=== PATIENT | female | born 1960 ===

== ENCOUNTER 2017-06-11 00:15 | Inpatient (IN) | payer MEDICAID, OTHER ==
--- NOTE | 2017-06-11 01:16 | ED PDOC ---
Arrival/HPI - General Historian: Patient, Spouse, Family (son) - History of Present Illness Time/Duration: Other Context: Home <Dev Huerta - Last Filed: 06/11/17 01:57> <Stan Wakefield - Last Filed: 06/11/17 04:35> - General Chief Complaint: Eye Problem Time Seen by Provider: 06/11/17 01:14 - History of Present Illness Narrative History of Present Illness (Text): 06/11/17 01:16 This 56 yo female with pmh seizures, presents to this ED c/o left eye injury x 2 hours. Patient stated she passed out, and developed chest pain afterwards. Patient is taking Carbamazepine for seizures. stated he saw patient on standing position with a seizure like movement. attempt to wake up patient with alcohol, but he accidentally spilled alcohol on patient left eye. Patient denies flynn, fever, sob, dizziness, dysarthria, dysphagia, or orthopnea. (Dev Huerta) Past Medical History - Provider Review Nursing Documentation Reviewed: Yes - Psychiatric Hx Substance Use: No <Dev Huerta - Last Filed: 06/11/17 01:57> Family/Social History - Physician Review Nursing Documentation Reviewed: Yes Family/Social History: Other (noncontributory) Smoking Status: no Hx Alcohol Use: No Hx Substance Use: No <Dev Huerta - Last Filed: 06/11/17 01:57> Allergies/Home Meds <Dev Huerta - Last Filed: 06/11/17 01:57> <Stan Wakefield - Last Filed: 06/11/17 04:35> Allergies/Adverse Reactions: Allergies No Known Allergies Allergy (Verified 06/11/17 00:37) Home Medications: Home Meds Medication Instructions Recorded Confirmed No Known Home Med 06/11/17 06/11/17 Review of Systems - Review of Systems Constitutional: Normal. absent: Fatigue, Weight Change, Fevers Eyes: Other (left eye injury) ENT: Normal. absent: Sore Throat Respiratory: Normal. absent: SOB, Cough Cardiovascular: Chest Pain, Syncope. absent: Palpitations, Edema, Calf Pain, FLYNN, Orthopnea Gastrointestinal: Normal. absent: Abdominal Pain, Nausea, Vomiting Genitourinary Female: Normal. absent: Dysuria, Frequency, Hematuria Musculoskeletal: Normal. absent: Back Pain, Neck Pain Skin: Normal. absent: Rash Neurological: Normal. absent: Headache, Dizziness, Focal Weakness, Gait Changes , Speech Changes, Facial Droop, Disequilibrium Endocrine: Normal Hemo/Lymphatic: Normal Psychiatric: Normal <BradleyTiffaniegemma Sharp - Last Filed: 06/11/17 01:57> Physical Exam Temperature: Afebrile Blood Pressure: Normal Pulse: Regular Respiratory Rate: Normal Appearance: Positive for: Well-Appearing, Non-Toxic, Comfortable Pain Distress: None Mental Status: Positive for: Alert and Oriented X 3 - Systems Exam Head: Present: Atraumatic, Normocephalic Pupils: Present: PERRL, Other ((+) fluorescine stain on left eye, nasal side of cornea at 9 O'clock, approx 4 mm, square shape abrasion) Extroacular Muscles: Present: EOMI Conjunctiva: Present: Normal Mouth: Present: Moist Mucous Membranes Pharnyx: Present: Normal. No: ERYTHEMA, EXUDATE, TONSILS ENLARGED Neck: Present: Normal Range of Motion. No: Meningeal Signs Respiratory/Chest: Present: Clear to Auscultation, Good Air Exchange. No: Respiratory Distress, Accessory Muscle Use Cardiovascular: Present: Regular Rate and Rhythm, Normal S1, S2. No: Murmurs Abdomen: Present: Normal Bowel Sounds. No: Tenderness, Distention, Peritoneal Signs Back: Present: Normal Inspection Upper Extremity: Present: Normal Inspection, Normal ROM. No: Cyanosis, Edema Lower Extremity: Present: Normal Inspection, Normal ROM. No: Edema Neurological: Present: GCS=15, CN II-XII Intact, Speech Normal, Motor Func Grossly Intact, Normal Sensory Function, Normal Cerebellar Funct, Gait Normal Skin: Present: Warm, Dry, Normal Color. No: Rashes Psychiatric: Present: Alert, Oriented x 3, Normal Insight, Normal Concentration <BradleyDev Aron - Last Filed: 06/11/17 01:57> Vital Signs Temp Pulse Resp BP Pulse Ox 06/11/17 04:26 97.9 F 68 13 158/76 H 99 06/11/17 00:32 98.6 F 78 18 150/75 97 Medical Decision Making <Dev Huerta - Last Filed: 06/11/17 01:57> <Stan Wakefield - Last Filed: 06/11/17 04:35> ED Course and Treatment: 06/11/17 02:02 is aware of this case. I recommended patient for observation due to chest pain and syncope. Pending labs, ct head, cxr (Dev Huerta Aron) 06/11/17 03:05 EKG shows NSR at 60 BPM with nonspecific t wave changes. Interpreted by me. EXAM:CT Head Without Intravenous Contrast Dictated and Authenticated by: Tyler Alex MD 06/11/2017 3:48 AM IMPRESSION: 1. No definite acute intracranial abnormality. 2. Incidental/non-acute findings are described above 06/11/17 04:09 Case discussed with Air Saw Operator and House Doctor Dr. Manuel who is aware and agrees with the plan. Accepts patient into hospitalist service. Patient will be admitted to Telemetry for NSTEMI and Syncope. (Stan Wakefield) - Lab Interpretations Lab Results: 06/11/17 01:45 06/11/17 01:45 Lab Results 06/11/17 03:00: Urine Color Yellow, Urine Appearance Clear, Urine pH 7.0, Ur Specific [place] 1.010, Urine Protein Negative, Urine Glucose (UA) Negative, Urine Ketones Negative, Urine Blood Negative, Urine Nitrate Negative, Urine Bilirubin Negative, Urine Urobilinogen 0.2, Ur Leukocyte Esterase Negative 06/11/17 01:45: Sodium 141, Potassium 3.9, Chloride 107, Carbon Dioxide 22, Anion Gap 17, BUN 10, Creatinine 0.6 L, Est GFR ( Amer) > 60, Est GFR ( Non-Af Amer) > 60, Random Glucose 115 H, Calcium 9.6, Magnesium 2.3 H, Total Bilirubin 0.3, AST 35, ALT 38, Alkaline Phosphatase 94, Lactate Dehydrogenase 501, Total Creatine Kinase 178, Troponin I 0.61 H*, NT-Pro-B Natriuret Pep 97.2 , Total Protein 7.9, Albumin 4.2, Globulin 3.6, Albumin/Globulin Ratio 1.2 06/11/17 01:45: WBC 11.3 H, RBC 4.27, Hgb 12.6, Hct 37.8, MCV 88.5, MCH 29.5, MCHC 33.3, RDW 14.1, Plt Count 272, MPV 9.9, Gran % 80.6 H, Lymph % (Auto) 15.5 L, [place] % (Auto) 3.1, Eos % (Auto) 0.5 L, Baso % (Auto) 0.3, Gran # 9.12 H, Lymph # (Auto) 1.8, [place] # (Auto) 0.4, Eos # (Auto) 0.1, Baso # (Auto) 0.03 - RAD Interpretation Radiology Orders: 06/11/17 01:15 CHEST PORTABLE [RAD] Stat 06/11/17 01:16 HEAD W/O CONTRAST [CT] Stat - Medication Orders Current Medication Orders: Discontinued Medications Aspirin (Aspirin) 325 mg PO STAT STA Stop: 06/11/17 03:10 Last Admin: 06/11/17 03:29 Dose: 325 mg Clopidogrel Bisulfate (Plavix) 300 mg PO STAT STA Stop: 06/11/17 04:12 Last Admin: 06/11/17 04:24 Dose: 300 mg Enoxaparin Sodium (Lovenox) 60 mg SC STAT STA PRN Reason: Protocol Stop: 06/11/17 04:12 Last Admin: 06/11/17 04:24 Dose: 60 mg Subcutaneous Administrations Document 06/11/17 04:24 GUICHO (Rec: 06/11/17 04:24 GUICHO [facility] [id number]) Injection Site MAR Injection Site Left Abdomen Charges for Administration # of Subcutaneous Administrations 1 Erythromycin (Erythromycin) 1 applic OS ONCE ONE Stop: 06/11/17 01:36 Last Admin: 06/11/17 01:50 Dose: 0.5 in Morphine Sulfate (Morphine) 2 mg IVP STAT STA Stop: 06/11/17 03:11 Last Admin: 06/11/17 03:29 Dose: 2 mg MAR Pain Assessment Document 06/11/17 03:29 JOL (Rec: 06/11/17 03:29 JOL [id number]) Pain Reassessment Is this a pain reassessment? No Sleep Is patient sleeping during reassessment? No Presence of Pain Presence of Pain Yes Pain Scale Used Pain Scale Used Numeric IVP Administration Document 06/11/17 03:29 JOL (Rec: 06/11/17 03:29 JOL [id number]) Charges for Administration # of IVP Administrations 1 Ondansetron HCl (Zofran Inj) 4 mg IVP STAT STA Stop: 06/11/17 03:11 Last Admin: 06/11/17 03:29 Dose: 4 mg IVP Administration Document 06/11/17 03:29 GOYO (Rec: 06/11/17 03:29 JOAxel [id number]) Charges for Administration # of IVP Administrations 1 - PA / AMMONIA TECHNICIAN / Resident Statement / has reviewed & agrees with the documentation as recorded. / has examined the patient and agrees with the treatment plan. <Stan Wakefield - Last Filed: 06/11/17 04:35> Disposition/Present on Arrival - Present on Arrival Any Indicators Present on Arrival: No History of DVT/PE: No History of Uncontrolled Diabetes: No Urinary Catheter: No History of Decub. Ulcer: No History Surgical Site Infection Following: None - Disposition Have Diagnosis and Disposition been Completed?: Yes Disposition Time: 02:06 Patient Plan: Admission <Dev Huerta - Last Filed: 06/11/17 01:57> - Present on Arrival Any Indicators Present on Arrival: No History of DVT/PE: No History of Uncontrolled Diabetes: No Urinary Catheter: No History of Decub. Ulcer: No History Surgical Site Infection Following: None - Disposition Have Diagnosis and Disposition been Completed?: Yes Disposition Time: 04:13 Patient Plan: Admission <Stan Wakefield - Last Filed: 06/11/17 04:35> - Disposition Diagnosis: Syncope and collapse, Chest pain, NSTEMI (non-ST elevated myocardial infarction ) Disposition: HOSPITALIZED Patient Problems: Current Active Problems Problem Status Onset Chest pain Acute NSTEMI (non-ST elevated myocardial infarction) Acute Syncope and collapse Acute Condition: STABLE
[2017-06-11] MEDS ORDERED: Erythromycin 0.5% Ophth Oint 1 APPLIC/3.5 G OS ONE (01:35)
[2017-06-11 02:12] LABS: BASO # 0.03 K/mm3 (0.0-2.0); BASO % 0.3 % (0.0-3.0); EOS # 0.1 (0.0-0.7); EOS % 0.5 % (1.5-5.0); GRAN # 9.12 (1.4-6.5); GRAN % 80.6 % (50.0-68.0); HEMOGLOBIN 12.6 g/dL (12.0-16.0); LYMPH # 1.8 (1.2-3.4); LYMPH % 15.5 % (22.0-35.0); MEAN CELL VOLUME 88.5 fl (80.0-105.0); MEAN CORPUSCULAR HEMOGLOBIN 29.5 pg (25.0-35.0); MEAN CORPUSCULAR HGB CONC 33.3 g/dl (31.0-37.0); MEAN PLATELET VOLUME 9.9 fl (7.0-11.0); MONO # 0.4 (0.1-0.6); MONO % 3.1 % (1.0-6.0); RBC 4.27 10^6/uL (3.5-6.1); RED CELL DISTRIBUTION WIDTH 14.1 % (11.5-14.5); WHITE BLOOD COUNT 11.3 10^3/ul (4.5-11.0)
[2017-06-11 02:25] LABS: ALB/GLOB RATIO 1.2 (1.1-1.8); ALBUMIN 4.2 g/dL (3.0-4.8); ALT/SGPT 38 U/L (7-56); AST/SGOT 35 U/L (14-36); BLOOD UREA NITROGEN 10 mg/dL (7-21); CALCIUM 9.6 mg/dL (8.4-10.5); GFR AFRICAN-AMERICAN > 60; GFR NON-AFRICAN AMERICAN > 60; MAGNESIUM 2.3 mg/dL (1.7-2.2)
[2017-06-11 03:06] LABS: B-TYPE NATRIURETIC PEPTIDE 97.2 pg/mL (0-450); TROPONIN I 0.61 ng/mL
[2017-06-11] MEDS ORDERED: Morphine 2 mg/ml ISec IVP STA (03:10)
--- NOTE | 2017-06-11 03:49 | CT ---
EXAM: CT Head Without Intravenous Contrast CLINICAL HISTORY: 56 years old, female; Signs and symptoms; Syncope and collapse TECHNIQUE: Axial computed tomography images of the head/brain without intravenous contrast. All CT scans at this facility use one or more dose reduction techniques, viz.: automated exposure control; ma/kV adjustment per patient size (including targeted exams where dose is matched to indication; i.e. head); or iterative reconstruction technique. Coronal and sagittal reformatted images were created and reviewed. COMPARISON: No relevant prior studies available. FINDINGS: Brain: No intracranial hemorrhage. No mass. No definite edema. Ventricles: No hydrocephalus. Bones/joints: No acute fracture. Soft tissues: Unremarkable. Sinuses: Scattered minimal mucosal thickening. Mastoid air cells: No mastoid effusion. Orbits: Unremarkable as visualized. IMPRESSION: 1. No definite acute intracranial abnormality. 2. Incidental/non-acute findings are described above.
[2017-06-11 03:54] LABS: URINE BILIRUBIN NEGATIVE (NEGATIVE); URINE BLOOD NEGATIVE (NEGATIVE); URINE GLUCOSE (UA) NEGATIVE (NEGATIVE); URINE LEUKOCYTE ESTERASE NEGATIVE Leu/uL (NEGATIVE); URINE NITRATE NEGATIVE (NEGATIVE); URINE PROTEIN NEGATIVE mg/dL (<30 mg/dL); URINE UROBILINOGEN 0.2 E.U./dL (<1 E.U./dL)
[2017-06-11 03:56] LABS: URINE APPEARANCE CLEAR (CLEAR); URINE COLOR YELLOW (YELLOW)
[2017-06-11] MEDS: Enoxaparin 60 mg Syringe SC STA ×2 (04:24→06:02)
[2017-06-11] MEDS ORDERED: Nitroglycerin 2% Ointment Foilpak UD TOP STA (05:06)
--- NOTE | 2017-06-11 05:54 | CP.PCM.HP ---
<LizzieVee - Last Filed: 06/11/17 05:13> History of Present Illness - History of Present Illness History of Present Illness: Vee Samuel, PGY1, Medicine H&P for Dr Manuel: CC: seizure, eye irritation 56 year old female with PMH seizures, noncompliant with home carbamazepine, presents s/p seizure episode this evening at 9 PM. Pt states that she had "shaking of her body," then collapsed to the floor (without hitting her head), with postictal confusion that lasted for few minutes. As per her culture, when pt's saw pt having a seizure, he started putting rubbing alcohol on the pt, some of which went into her eyes. She then had tearing of the eye, redness and blurry vision. Pt irrigated her eyes with tap water and used visine drops at home. Later, pt decided to come to ED. Denies urinary/bowel incontinence, tongue biting, cp, headache, sob, flynn, palpitations, diaphoresis, nausea, vomiting, dyspepsia, heartburn, diarrhea, constipation, leg swelling, urinary complaints. Upon asking, pt does note mild RUQ abdominal pain that started after the episode. Pt last saw a doctor in [facility] 3 years ago, pt does not see a PMD or neurologist in [place] She takes Carbamazepine 1 tablet daily (does not remember dosage), gets the medication from any relative coming from [facility]. She however admits that she misses her doses many times, her last dose was on Saturday. In ED, pt afebrile with mildly hypertensive BP 150's/90s. trop elevated at 0.61. EKG shows HR 60 NSR with T wave inversions in I, AVL, V2, V3, poor R wave progression in V2-V3. Given ASA 325mg, morphine, lipitor, plavix 300 mg, therapeutic lovenox, Keppra. 12 point ROS obtained and neg, except as noted per HPI. 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 Lives with and kids. Denies etoh, tobacco, recreational drug use. Avid walker, walks many miles a day. Immigrated from [facility] 3 years ago PMD: none (last seen a doctor in [facility] 3 years ago). Present on Admission - Present on Admission Any Indicators Present on Admission: No History of DVT/PE: No History of Uncontrolled Diabetes: No Urinary Catheter: No Decubitus Ulcer Present: No Review of Systems - Review of Systems All systems: reviewed and no additional remarkable complaints except Review of Systems: as per HPI Past Patient History - Past Social History Smoking Status: no - PSYCHIATRIC Hx Substance Use: No Meds Allergies/Adverse Reactions: Allergies Allergy/AdvReac Type Severity Reaction Status Date / Time No Known Allergies Allergy Verified 06/11/17 00:37 Physical Exam - Constitutional Appears: Non-toxic, No Acute Distress, Older Than Stated Age - Head Exam Head Exam: ATRAUMATIC, NORMOCEPHALIC - Eye Exam Eye Exam: Conjunctival injection, EOMI, PERRL. absent: Nystagmus, Periorbital swelling, Periorbital tenderness, Scleral icterus Pupil Exam: NORMAL ACCOMODATION, PERRL. absent: Fixed, Irregular, Miosis, Mydriatic, Unequal - ENT Exam ENT Exam: Mucous Membranes Moist - Neck Exam Neck exam: Positive for: Full Rom - Respiratory Exam Respiratory Exam: Clear to Auscultation Bilateral, NORMAL BREATHING PATTERN. absent: Accessory Muscle Use, Decreased Breath Sounds, Rales, Rhonchi, Wheezes, Respiratory Distress, Stridor - Cardiovascular Exam Cardiovascular Exam: RRR, +S1, +S2. absent: Systolic Murmur - GI/Abdominal Exam GI & Abdominal Exam: Normal Bowel Sounds, Soft. absent: Distended, Guarding, Hernia, Mass, Organomegaly, Rebound, Rigid, Tenderness - Extremities Exam Extremities exam: Positive for: normal inspection. Negative for: calf tenderness, pedal edema - Back Exam Back exam: NORMAL INSPECTION. absent: CVA tenderness (L), CVA tenderness (R) - Neurological Exam Neurological exam: Alert, CN II-XII Intact, Normal Gait, Oriented x3, Reflexes Normal - Expanded Neurological Exam Expanded Patient oriented to: person, place, time Cranial nerves: EOM's Intact: Normal, Facial Sensation: Normal, Nystagmus: Normal, Tongue Deviation: Normal Cerebellar Function: Finger to Nose: Normal, Heel to Alex: Normal Sensory exam: Lower Extremity Light Touch: Normal, Upper Extremity Light Touch: Normal Neuro motor strength exam: Left Upper Extremity: 5, Right Upper Extremity: 5, Left Lower Extremity: 5, Right Lower Extremity: 5 - Psychiatric Exam Psychiatric exam: Normal Affect, Normal Mood - Skin Skin Exam: Dry, Normal Color, Warm Results - Vital Signs Recent Vital Signs: Last Vital Signs Temp 97.9 F 06/11/17 04:26 Pulse 68 06/11/17 04:26 Resp 13 06/11/17 04:26 BP 158/76 H 06/11/17 04:26 Pulse Ox 99 06/11/17 04:26 - Labs Result Diagrams: 06/11/17 01:45 06/11/17 01:45 Assessment & Plan - Assessment and Plan (Free Text) Assessment: 56 year old female with PMH seizures, presents s/p seizure episode/syncope, conjunctivitis, found to have NSTEMI: LUQ pain: 2/2 NSTEMI vs GERD vs PUD - EKG shows NSR, HR 60. T wave inversions in leads I, AVL, V2, V3. Poor R wave progression in leads V2, V3 No prior EKG available for comparisons - Initial trop 0.61. F/u serial trops with EKG. - BNP nrml - Given ASA 325, lipitor, plavix 300 mg and Morphine in ED - Started on ASA 81, high intensity statin, plavix 75. Hold BB in setting of low HR. - Protonix IV - Given therapeutic Lovenox. Will give another dose at 4 PM. - Nitropaste x1 - Echocardiogram - Cardio consulted. F/u recs - NPO - lipid panel, hgbA1c, tsh - Tele monitoring Seizure: 2/2 medication noncompliance - CT head neg - Keppra 500 given in ED - Pt does not recall exact dosage of home carbamazepine. states that will give in AM. - Neuro consulted. F/u recs Bilateral eye redness: 2/2 rubbing alcohol/allergic conjunctivitis - Eye irrigated in ED - Erythromycin ointment - Consider Optho consult PPX: lovenox, protonix Diet: NPO Discussed with Dr Manuel. - Date & Time Date: 06/11/17 Time: 05:54 <Lia Manuel - Last Filed: 06/11/17 07:09> Results - Vital Signs Recent Vital Signs: Last Vital Signs Temp 97.9 F 06/11/17 04:26 Pulse 60 06/11/17 06:00 Resp 19 06/11/17 05:32 BP 158/76 H 06/11/17 04:26 Pulse Ox 99 06/11/17 04:26 - Labs Result Diagrams: 06/11/17 01:45 06/11/17 01:45 Attending/Attestation - Attestation I have personally seen and examined this patient.: Yes I have fully participated in the care of the patient.: Yes I have reviewed all pertinent clinical information: Yes Notes (Text): 06/11/17 07:09 Patient was seen when she was in bed # 13 in the ER. Agree with history, physical examination, assessment and plan.
[2017-06-11 06:27] VITALS: BMI 26.5
[2017-06-11] MEDS: Erythromycin 0.5% Ophth Oint 1 APPLIC/3.5 G OU SCH ×6 (06:47→23:56)
--- NOTE | 2017-06-11 08:21 | RAD ---
HISTORY: syncope COMPARISON: No prior. FINDINGS: LUNGS: No active pulmonary disease. PLEURA: No significant pleural effusion identified, no pneumothorax apparent. CARDIOVASCULAR: Normal. OSSEOUS STRUCTURES: No significant abnormalities. VISUALIZED UPPER ABDOMEN: Normal. OTHER FINDINGS: None. IMPRESSION: No active disease.
[2017-06-11 08:57] LABS: TROPONIN I 0.89 ng/mL
--- NOTE | 2017-06-11 12:31 | CARD ---
APPROVED REPORT EKG Measurement Heart [id number] ID [id number] <Conclusion> Sinus bradycardia T wave abnormality, consider anterolateral ischemia Abnormal ECG
--- NOTE | 2017-06-11 12:32 | CARD ---
APPROVED REPORT EKG Measurement Heart [id number] <Conclusion> Normal sinus rhythm Nonspecific T wave abnormality Abnormal ECG
[2017-06-11 12:36] LABS: PROLACTIN 13.6 ng/mL (3.0-18.9)
--- NOTE | 2017-06-11 14:57 | CP.PCM.CON ---
History of Present Illness - History of Present Illness History of Present Illness: Neuro Consult Note: 56 F with PMH seizures, noncompliant with home carbamazepine, presents following seizure episode yesterday. Pt states that she had a seizure and when pt's saw pt having a seizure, he started putting rubbing alcohol b/c sometimes strong smell counters the seizure episode. Denies urinary/bowel incontinence, tongue biting. Pt last saw a doctor in [facility] 3 years ago which prescribed her the carbamazepine and she hasn't seen him since. Family brings her medication here for her. She however admits that she misses her doses many times, her last dose was on Saturday. No other complaints. 12 point ROS obtained and neg, except as noted above Med: Carbamazepine PMH: tonic clonic seizures (diagnosed in childhood) PSH: denies All: NKA FH: denies [place], CAD SH: Denies etoh, tobacco, recreational drug use. Review of Systems - Review of Systems All systems: reviewed and no additional remarkable complaints except Past Patient History - Past Social History Smoking Status: no - CARDIAC Hx Cardiac Disorders: No - PULMONARY Hx Respiratory Disorders: No - NEUROLOGICAL Hx Neurological Disorder: Yes Hx Seizures: Yes - HEENT Hx HEENT Problems: No - RENAL Hx Chronic Kidney Disease: No - ENDOCRINE/METABOLIC Hx Endocrine Disorders: No - HEMATOLOGICAL/ONCOLOGICAL Hx Blood Disorders: No - INTEGUMENTARY Hx Dermatological Problems: No - MUSCULOSKELETAL/RHEUMATOLOGICAL Hx Musculoskeletal Disorders: No Hx Falls: No - GASTROINTESTINAL Hx Gastrointestinal Disorders: No - GENITOURINARY/GYNECOLOGICAL Hx Genitourinary Disorders: No - PSYCHIATRIC Hx Substance Use: No - SURGICAL HISTORY Hx Surgeries: Yes Hx Hysterectomy: () Meds Allergies/Adverse Reactions: Allergies Allergy/AdvReac Type Severity Reaction Status Date / Time No Known Allergies Allergy Verified 06/11/17 00:37 - Medications Medications: Current Medications Aspirin (Aspirin Chewable) 81 mg PO DAILY [facility] Atorvastatin Calcium (Lipitor) 80 mg PO DIN [facility] Carbamazepine (Tegretol) 200 mg PO TID MARYCHUY PRN Reason: Protocol Clopidogrel Bisulfate (Plavix) 75 mg PO DAILY [facility] Erythromycin (Erythromycin) 1 applic OU Q4H [facility] Last Admin: 06/11/17 09:30 Dose: 1 applic Lorazepam (Ativan) 3 mg IVP ONCE PRN; Protocol PRN Reason: Seizure activity Pantoprazole Sodium (Protonix Ec Tab) 40 mg PO ACB MARYCHUY Physical Exam - Constitutional Appears: No Acute Distress - Head Exam Head Exam: ATRAUMATIC, NORMOCEPHALIC - Eye Exam Eye Exam: EOMI, PERRL Pupil Exam: NORMAL ACCOMODATION - ENT Exam ENT Exam: Mucous Membranes Moist - Respiratory Exam Respiratory Exam: Clear to Auscultation Bilateral. absent: Wheezes - Cardiovascular Exam Cardiovascular Exam: REGULAR RHYTHM, RRR, +S1, +S2 - GI/Abdominal Exam GI & Abdominal Exam: Normal Bowel Sounds, Soft. absent: Distended, Tenderness - Extremities Exam Extremities exam: Negative for: calf tenderness - Neurological Exam Neurological exam: Alert, CN II-XII Intact, Oriented x3 - Skin Skin Exam: Dry, Intact, Warm Results - Vital Signs Recent Vital Signs: Last Vital Signs Temp 98.1 F 06/11/17 12:00 Pulse 58 L 06/11/17 12:00 Resp 20 06/11/17 12:00 BP 118/73 06/11/17 12:00 Pulse Ox 99 06/11/17 06:00 - Labs Result Diagrams: 06/11/17 01:45 06/11/17 01:45 Labs: Laboratory Results - last 24 hr 06/11/17 06/11/17 06/11/17 07:30 07:30 07:30 D-Dimer, Quantitative Hemoglobin A1c 5.3 Troponin I 0.89 H* D Triglycerides 216 H Cholesterol 167 LDL Cholesterol Direct 78 HDL Cholesterol 41 TSH 3rd Generation 1.01 Prolactin 13.6 06/11/17 11:40 D-Dimer, Quantitative < 200 Hemoglobin A1c Troponin I Triglycerides Cholesterol LDL Cholesterol Direct HDL Cholesterol TSH 3rd Generation Prolactin Assessment & Plan - Assessment and Plan (Free Text) Assessment: 56 F with PMH seizures, noncompliant with home carbamazepine, presents following seizure episode yesterday. - CTH negative - MRI of brain w and w/o contrast ordered - Cont carbamazepine 200mg BID - Seizure precautions - Recommended follow up with neurologist as an outpatient upon discharge - F/u cardiology recs for elevated troponin Case and plan was reviewed and discussed with Dr Perla
[2017-06-11 21:59] LABS: PARTIAL THROMBOPLASTIN TIME 29.1 Seconds (25.1-36.5); PROTHROMBIN TIME 11.4 SECONDS (9.4-12.5)
--- NOTE | 2017-06-11 23:53 | CON ---
DATE: CARDIOLOGY CONSULTATION REASON FOR CONSULTATION: Elevated troponin. HISTORY OF PRESENT ILLNESS: Patient is a 56-year-old female from [facility] who has been treated for seizures in [facility] and she arrived some 6 months ago and the last seizure was 6 months ago prior to her departure from [facility] and she had another one yesterday prior to her presentation. Patient described feeling dizzy, followed by shaking movement. Patient did lose consciousness completely according to her. She had no tongue biting or urinary incontinence and sustained no injuries. The event was witnessed by the . Patient is not aware of any prior cardiac history and denies any history of chest pain. SOCIAL HISTORY: Nonsmoker, nondrinker. She lives with her family and two children. MEDICATIONS: Aspirin 81 mg once a day, Lipitor 80 mg once a day, Plavix 75 mg once a day, Tegretol 200 mg t.i.d., Protonix 40 mg p.o. once a day, Ativan 3 mg intravenously p.r.n. for seizure activity. PHYSICAL EXAMINATION: GENERAL: Patient is a middle-aged female who does not appear to be in any distress. VITAL SIGNS: Blood pressure 129/73, heart rate 58, temperature 98.1, respirations 20. HEENT: Normocephalic. NECK: No JVD. CHEST: Clear. HEART: S1 and S2, regular. ABDOMEN: Soft. EXTREMITIES: No edema. LABORATORY DATA: SMA-7 is within normal limits except for glucose 115 and creatinine 0.6, magnesium 2.3, troponin 0.61 and 0.89. Total cholesterol of 216; rest of lipid profile is within normal limit. D-dimer is within normal limit. Tegretol level is 3. EKG revealed sinus rhythm with questionable anterolateral ischemic T-wave changes. ASSESSMENT: 1. Seizure disorder and seizure activity. 2. Borderline troponin elevation, rule out [id number] myocardial infarction. RECOMMENDATIONS: Continue aspirin, Lipitor, and Plavix therapy. Case was discussed with Dr. Uriel Mathias and with the medical team and the patient will be scheduled for cardiac catheterization with possible intervention tomorrow by Dr. Uriel Mathias. Otilio Davies MD
[2017-06-12] MEDS: Erythromycin 0.5% Ophth Oint 1 APPLIC/3.5 G OU SCH ×6 (01:57→22:07)
[2017-06-12 06:39] LABS: BASO # 0.01 K/mm3 (0.0-2.0); BASO % 0.1 % (0.0-3.0); EOS # 0.2 (0.0-0.7); EOS % 2.6 % (1.5-5.0); GRAN # 5.16 (1.4-6.5); GRAN % 64.3 % (50.0-68.0); HEMOGLOBIN 11.7 g/dL (12.0-16.0); LYMPH # 2.1 (1.2-3.4); LYMPH % 26.3 % (22.0-35.0); MEAN CORPUSCULAR HEMOGLOBIN 28.5 pg (25.0-35.0); MEAN CORPUSCULAR HGB CONC 31.6 g/dl (31.0-37.0); MEAN PLATELET VOLUME 9.7 fl (7.0-11.0); MONO # 0.5 (0.1-0.6); MONO % 6.7 % (1.0-6.0); RBC 4.11 10^6/uL (3.5-6.1); RED CELL DISTRIBUTION WIDTH 14.4 % (11.5-14.5)
[2017-06-12] MEDS ORDERED: Pantoprazole 40 mg EC Tab PO SCH (07:30)
[2017-06-12 07:32] LABS: ALB/GLOB RATIO 1.1 (1.1-1.8); ALBUMIN 3.8 g/dL (3.0-4.8); ALT/SGPT 32 U/L (7-56); AST/SGOT 44 U/L (14-36); BLOOD UREA NITROGEN 13 mg/dL (7-21); CALCIUM 9.6 mg/dL (8.4-10.5); GFR AFRICAN-AMERICAN > 60; GFR NON-AFRICAN AMERICAN > 60
--- NOTE | 2017-06-12 08:46 | CARD ---
APPROVED REPORT EKG Measurement Heart [id number] <Conclusion> Normal sinus rhythm T wave abnormality, consider anterolateral ischemia Prolonged QT
--- NOTE | 2017-06-12 14:53 | CP.PCM.PN ---
<John Ledezma - Last Filed: 06/12/17 15:00> Subjective - Date & Time of Evaluation Date of Evaluation: 06/12/17 Time of Evaluation: 06:30 - Subjective Subjective: Patient seen and examined at bedside in no acute distress with no complaints. States she feels much better. She also states that she is now able to open her eyes with more ease. States there is still slight irritation however is improving. Denies chest pain, palpitations, shortness of breath, fevers, chills , cough, nausea, vomiting, diarrhea. Objective - Vital Signs/Intake and Output Vital Signs (last 24 hours): Temp Pulse Resp BP Pulse Ox 98.2 F 80 18 102/53 L 99 06/12/17 11:32 06/12/17 14:00 06/12/17 11:32 06/12/17 11:32 06/12/17 11:32 - Medications Medications: Current Medications Aspirin (Aspirin Chewable) 81 mg PO DAILY [facility] Last Admin: 06/12/17 10:37 Dose: 81 mg Atorvastatin Calcium (Lipitor) 80 mg PO DIN [facility] Last Admin: 06/11/17 17:09 Dose: 80 mg Carbamazepine (Tegretol) 200 mg PO BID [facility] PRN Reason: Protocol Last Admin: 06/12/17 10:37 Dose: 200 mg Clopidogrel Bisulfate (Plavix) 75 mg PO DAILY [facility] Last Admin: 06/12/17 10:37 Dose: 75 mg Erythromycin (Erythromycin) 1 applic OU Q4H [facility] Last Admin: 06/12/17 10:40 Dose: Not Given Lorazepam (Ativan) 3 mg IVP ONCE PRN; Protocol PRN Reason: Seizure activity Pantoprazole Sodium (Protonix Ec Tab) 40 mg PO ACB [facility] Last Admin: 06/12/17 08:28 Dose: 40 mg - Labs Labs: 06/12/17 05:45 06/12/17 05:45 PT 11.4 SECONDS (9.4-12.5) 06/11/17 21:40 INR 1.00 (0.93-1.08) 06/11/17 21:40 APTT 29.1 Seconds (25.1-36.5) 06/11/17 21:40 - Constitutional Appears: Non-toxic, No Acute Distress - Head Exam Head Exam: ATRAUMATIC, NORMAL INSPECTION, NORMOCEPHALIC - Eye Exam Eye Exam: EOMI. absent: Nystagmus, Periorbital swelling, Periorbital tenderness , Scleral icterus Pupil Exam: NORMAL ACCOMODATION, PERRL. absent: Fixed, Irregular, Unequal - ENT Exam ENT Exam: Mucous Membranes Moist, Normal Exam - Neck Exam Neck Exam: Normal Inspection - Respiratory Exam Respiratory Exam: Clear to Ausculation Bilateral, NORMAL BREATHING PATTERN. absent: Rhonchi, Wheezes - Cardiovascular Exam Cardiovascular Exam: REGULAR RHYTHM, +S1, +S2 - GI/Abdominal Exam GI & Abdominal Exam: Soft, Normal Bowel Sounds. absent: Tenderness - Extremities Exam Extremities Exam: Full ROM, Normal Capillary Refill - Back Exam Back Exam: NORMAL INSPECTION - Neurological Exam Neurological Exam: Alert, Awake, Oriented x3 - Psychiatric Exam Psychiatric exam: Normal Affect, Normal Mood - Skin Skin Exam: Intact, Normal Color, Warm Assessment and Plan - Assessment and Plan (Free Text) Assessment: 56 year old female with PMH seizures, presents s/p seizure episode/syncope, conjunctivitis, found to have NSTEMI: NSTEMI: - Cardiology consulted - EKG shows NSR, HR 60. T wave inversions in leads I, AVL, V2, V3. Poor R wave progression in leads V2, V3 which is also present in subsequent EKG - With initial upward trend in troponins, patient will go for cath tomorrow morning. - Upon being admitted to the emergency department, patient was given ASA 325, lipitor, plavix 300 mg and Morphine. - Started on ASA 81, high intensity statin, plavix 75. Hold BB in setting of low HR. - Heparin, will place on hold in morning for catheterization - Echocardiogram results pending - NPO after midnight - lipid panel significant for elevated triglycerides, hgbA1c 5.3 , TSH within normal limits Seizure: 2/2 medication noncompliance - Patient started on home dose of carbamazepine 200 mg BID - Neuro consulted, CT head negative, MRI ordered, will follow up with MRI and upon discharge will refer patient to follow up outpatient for neurology - Medication compliance stressed Bilateral eye redness: 2/2 rubbing alcohol irritation - Eye irrigated in ED - Will continue with erythromycin ointment PPX: heparin, protonix Diet: Heart healthy diet, but NPO after midnight <Magan Carranza - Last Filed: 06/12/17 16:12> Objective - Vital Signs/Intake and Output Vital Signs (last 24 hours): Temp Pulse Resp BP Pulse Ox 98.2 F 80 18 102/53 L 99 06/12/17 11:32 06/12/17 14:00 06/12/17 11:32 06/12/17 11:32 06/12/17 11:32 Intake and Output: 06/12/17 06/12/17 06:59 18:59 Intake Total 720 Output Total 2 Balance 718 - Medications Medications: Current Medications Aspirin (Aspirin Chewable) 81 mg PO DAILY [facility] Last Admin: 06/12/17 10:37 Dose: 81 mg Atorvastatin Calcium (Lipitor) 80 mg PO DIN [facility] Last Admin: 06/11/17 17:09 Dose: 80 mg Carbamazepine (Tegretol) 200 mg PO BID [facility] PRN Reason: Protocol Last Admin: 06/12/17 10:37 Dose: 200 mg Clopidogrel Bisulfate (Plavix) 75 mg PO DAILY [facility] Last Admin: 06/12/17 10:37 Dose: 75 mg Erythromycin (Erythromycin) 1 applic OU Q4H [facility] Last Admin: 06/12/17 10:40 Dose: Not Given Heparin Sodium (Porcine) (Heparin) 5,000 units SC Q12 [facility] PRN Reason: Protocol Stop: 06/13/17 03:00 Lorazepam (Ativan) 3 mg IVP ONCE PRN; Protocol PRN Reason: Seizure activity Pantoprazole Sodium (Protonix Ec Tab) 40 mg PO ACB [facility] Last Admin: 06/12/17 08:28 Dose: 40 mg - Labs Labs: 06/12/17 05:45 06/12/17 05:45 PT 11.4 SECONDS (9.4-12.5) 06/11/17 21:40 INR 1.00 (0.93-1.08) 06/11/17 21:40 APTT 29.1 Seconds (25.1-36.5) 06/11/17 21:40 Attending/Attestation - Attestation I have personally seen and examined this patient.: Yes I have fully participated in the care of the patient.: Yes I have reviewed all pertinent clinical information, including history, physical exam and plan: Yes Notes (Text): I have seen and examined the patient at bedside. Agree with the above note with the following additions/ exceptions: Briefly this is 56 year old female with history of seizures who came for evaluation of seizure and found to have left eye conjunctivitis and NSTEMI. Cardiac enzymes are elevated and TWI also noted. Continue aspirin, plavix and heparin. Patient is scheduled for cardiac cath tomorrow. Echo pending. TSH normal. Patient has been non compliant with seizure medication. Patient was advised to take carbamazepine regularly. Patient has left eye irritation due to rubbing alcohol irritation. Continue erthromycin ointment. Upon discharge patient [place] [facility] [place] Magan Carranza
--- NOTE | 2017-06-12 15:10 | PN ---
DATE: SUBJECTIVE: The patient denies any chest pain. PHYSICAL EXAMINATION: VITAL SIGNS: Blood pressure 102/53, heart rate 65, temperature 98.3, respirations 18. HEENT: Normocephalic. CHEST: Clear. HEART: S1, S2, regular. EXTREMITIES: No edema. LABORATORY DATA: Today's SMA-7 is within normal limits. Hemoglobin and hematocrit 11.7 and 37.0, white count and platelet count are within normal limits. ASSESSMENT: 1. Seizure disorder. 2. Anterolateral ischemia and borderline troponin elevation, consider non-ST elevation myocardial infarction. RECOMMENDATIONS: Continue current aspirin, Plavix and Lipitor therapy. Patient will undergo cardiac catheterization, most possibly to intervention tomorrow by Dr. Uriel Mathias. Otilio Davies MD
[2017-06-12] MEDS ORDERED: Gadodiamide 287 MG/ML VIAL (15ML) IV ONE (18:59)
--- NOTE | 2017-06-12 19:25 | CARD ---
APPROVED REPORT EXAM: Two-dimensional and M-mode echocardiogram with Doppler and color Doppler. INDICATION 2D DIMENSIONS Left Atrium (2D)2.9 (1.6-4.0cm)IVSd0.7 (0.7-1.1cm) LVDd4.2 (3.9-5.9cm)PWd0.8 (0.7-1.1cm) LVDs2.8 (2.5-4.0cm)FS (%) 34.3 % LVEF (%)63.7 (>50%) M-Mode DIMENSIONS Aortic Root2.90 (2.2-3.7cm)Aortic Cusp Exc.1.80 (1.5-2.0cm) Aortic Valve AoV Peak Laxjncip644.0cm/Alfonso Peak GR.6mmHg Mitral Valve MV E Ofwswcen00.9cm/sMV A Vsqarauv93.9cm/sE/A ratio0.9 TDI Lateral E' Peak V8.50cm/sMedial E' Peak V5.93cm/sE/Lateral E'7.4 E/Medial E'10.6 Tricuspid Valve TR Peak Bgbwdadu265ln/sRAP [id number] Peak Gr.17mmHg [id number] LEFT VENTRICLE The left ventricle is normal size. There is normal left ventricular wall thickness. The left ventricular function is normal.EF-60-65% There is normal LV segmental wall motion. Transmitral Doppler flow pattern is Grade III-reversible restrictive diastolic dysfunction. No left ventricle thrombus noted on this study. There is no ventricular septal defect visualized. There is no left ventricular aneurysm. There is no mass noted in the left ventricle. RIGHT VENTRICLE The right ventricle is normal size. There is normal right ventricular wall thickness. The right ventricular systolic function is normal. ATRIA The left atrium size is normal. The right atrium size is normal. The interatrial septum is intact with no evidence for an atrial septal defect. AORTIC VALVE The aortic valve is normal in structure. No aortic regurgitation is present. There is no aortic valvular stenosis. There is no aortic valvular vegetation. MITRAL VALVE The mitral valve is thickened but opens well. Mitral regurgitation is trace. There is no mitral valve stenosis. There is no evidence of mitral valve prolapse. TRICUSPID VALVE The tricuspid valve is normal in structure. There is trace tricuspid regurgitation.RVSP-27 mmof hg. There is no tricuspid valve stenosis. There is no tricuspid valve prolapse or vegetation. PULMONIC VALVE The pulmonary valve is normal in structure. There is no pulmonic valvular regurgitation. GREAT VESSELS The aortic root is normal in size. The ascending aorta is normal in size. The pulmonary artery is normal. The IVC is normal in size and collapses >50% with inspiration. PERICARDIAL EFFUSION There is no pleural effusion. There is no pericardial effusion. <Conclusion> Normal Chamber Size. EF-60-65%. Trace MR/TR RVSP-27 mmof hg.
--- NOTE | 2017-06-12 21:02 | MRI ---
EXAM: MR Head Without and With Intravenous Contrast EXAM DATE/TIME: 06/12/2017 11:32 AM CLINICAL HISTORY: 56 years old, female; Signs and symptoms; Other: Seizure; Additional info: Seizure R/O tumors TECHNIQUE: Magnetic resonance images of the head/brain without and with intravenous contrast in multiple planes. CONTRAST: 15 mL of Omniscan administered intravenously. COMPARISON: Recent head CT 2017-06-11 FINDINGS: BRAIN: Best seen on image 5 of series 8, there is a small 1.4 cm area of increased T2 and FLAIR signal in the right parietal lobe, involving the cortex and subcortical white matter. This appears associated with volume loss. No associated enhancement. Most likely, this represents a small area of encephalomalacia. A few tiny foci of increased T2 and FLAIR signal are seen in the left frontal lobe white matter, nonspecific in appearance, but most likely representing chronic small vessel ischemic change, in a patient of this age. No other significant abnormality identified. No evidence of restricted diffusion/acute infarct. No signal abnormality seen to suggest acute hemorrhage. No evidence of extra-axial fluid collections. No evidence of abnormal intracranial enhancement. VENTRICLES: No evidence of significant hydrocephalus. BONES/JOINTS: No acute bony abnormality identified. SINUSES: No evidence of sinus fluid levels. MASTOID AIR CELLS: Mastoid air cells appear clear. ORBITS: No acute intraorbital abnormality seen. IMPRESSION: - No evidence of acute infarct or other significant acute abnormality. - No evidence of enhancing intracranial masses. - Small area of signal abnormality in the right parietal lobe, most likely representing a small area of encephalomalacia. - See above for remaining findings.
[2017-06-13] MEDS: Erythromycin 0.5% Ophth Oint 1 APPLIC/3.5 G OU SCH ×2 (01:34→05:18)
[2017-06-13 06:24] VITALS: O2SAT 98
[2017-06-13 07:09] LABS: BASO # 0.01 K/mm3 (0.0-2.0); BASO % 0.2 % (0.0-3.0); EOS # 0.2 (0.0-0.7); EOS % 3.5 % (1.5-5.0); GRAN # 2.63 (1.4-6.5); GRAN % 50.8 % (50.0-68.0); HEMOGLOBIN 11.6 g/dL (12.0-16.0); LYMPH % 38.7 % (22.0-35.0); MEAN CELL VOLUME 89.6 fl (80.0-105.0); MEAN CORPUSCULAR HEMOGLOBIN 28.6 pg (25.0-35.0); MONO # 0.4 (0.1-0.6); MONO % 6.8 % (1.0-6.0); RBC 4.05 10^6/uL (3.5-6.1); RED CELL DISTRIBUTION WIDTH 14.1 % (11.5-14.5); WHITE BLOOD COUNT 5.2 10^3/ul (4.5-11.0)
[2017-06-13 07:26] LABS: ALB/GLOB RATIO 1.1 (1.1-1.8); ALBUMIN 3.7 g/dL (3.0-4.8); ALT/SGPT 29 U/L (7-56); AST/SGOT 36 U/L (14-36); BLOOD UREA NITROGEN 15 mg/dL (7-21); CALCIUM 9.3 mg/dL (8.4-10.5); GFR AFRICAN-AMERICAN > 60; GFR NON-AFRICAN AMERICAN > 60
[2017-06-13] MEDS ORDERED: Lidocaine 2% Inj (20ml) ONE (09:15)
[2017-06-13] MEDS ORDERED: Iodixanol 320 MG/ML 200 ML BOTTLE IV ONE (09:16)
[2017-06-13] MEDS ORDERED: Iohexol 350mgl/ml 50 ML ONE (09:16)
[2017-06-13] MEDS ORDERED: Midazolam 2 MG/2 ML VIAL ONE ×2 (09:16→10:40)
[2017-06-13] MEDS ORDERED: HEPARIN SODIUM/NS 2,000 ML IV ONE (09:16)
[2017-06-13] MEDS ORDERED: Sodium Chloride 0.9% 1,000 ML IV SCH (11:30)
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
--- NOTE | 2017-06-13 15:18 | PN ---
DATE: FOLLOWUP SUBJECTIVE: The patient denies any chest pain. The patient underwent cardiac catheterization which revealed unremarkable coronary artery circulation and normal ejection fraction, and no reports of groin bleeding. OBJECTIVE: VITAL SIGNS: Blood pressure 112/67, heart rate 69, temperature 97.5, respirations 18. HEENT: Normocephalic. CHEST: Clear. HEART: S1 and S2, regular. EXTREMITIES: No edema. ASSESSMENT: 1. Seizure disorder. 2. Borderline troponin elevation; however, unremarkable coronary artery circulation. RECOMMENDATIONS: Continue current Tegretol and Ativan. No further cardiac workup is indicated. Otilio Davies MD
--- NOTE | 2017-06-13 15:21 | CARDCATH ---
PROCEDURE DATE: 06/13/2017 HISTORY: The patient is a 56-year-old woman, who presented to the hospital with sepsis. She developed chest pain and shortness of breath with an elevated troponin. A cardiac catheterization was recommended. PROCEDURE: Left heart catheterization with coronary arteriography and left ventriculogram. The right femoral artery was cannulated with 6-Swedish sheath. There were no complications. I performed moderate sedation, which included the presence of an independent trained observer that assisted in monitoring the patient's level of consciousness and physiologic status. After administration of Versed and fentanyl, my intra service time was 15 minutes. The findings on catheterization revealed a left ventricle that contracted normally. Estimated ejection fraction of 60%. The patient had a right dominant circulation. The RCA was within normal limits. The left main artery was unremarkable. The LAD and diagonal vessels were unremarkable. The circumflex artery and obtuse marginal branches were unremarkable. Angio-Seal was used to close the femoral artery site. The patient tolerated the procedure well. In summary, the procedure revealed unremarkable coronary arteries with normal LV function. Given these findings, the patient's elevated troponin is not due to coronary disease. There is no evidence for damage to her left ventricular function. Given these findings, we will discontinue her Plavix. We will discontinue her aspirin. No further cardiac workup is indicated. Uriel Mathias MD
[2017-06-13 17:26] VITALS: BP 141/71; PULSE 81; RESP 20
[2017-06-13 20:00] VITALS: TEMP 98.8
== END 2017-06-13 19:59 | disposition home or self-care (01) | DRG 101 ==
LOC: ED 00:15 → ERH 04:14 → 3RSO 05:44 → 2RNO 06-13 11:52
PROVIDERS: ADMIT Internal Medicine; ATTEND Hospitalist
PROC: 4A023N7 Measurement of Cardiac Sampling and Pressure, Left Heart, Percutaneous Approach (ICD-10-PCS; principal; 2017-06-13)
PROC: B2111ZZ Fluoroscopy of Multiple Coronary Arteries using Low Osmolar Contrast (ICD-10-PCS; 2017-06-13)
PROC: B2151ZZ Fluoroscopy of Left Heart using Low Osmolar Contrast (ICD-10-PCS; 2017-06-13)
DX: G40.909 Epilepsy, unspecified, not intractable, without status epilepticus (principal); G93.89 Other specified disorders of brain; H10.12 Acute atopic conjunctivitis, left eye; Z79.82 Long term (current) use of aspirin; Z90.710 Acquired absence of both cervix and uterus; Z91.14 Patient's other noncompliance with medication regimen; Z87.820 Personal history of traumatic brain injury

== ENCOUNTER 2018-03-23 12:27 | Emergency (ER) | payer MEDICAID, OTHER ==
[2018-03-23 12:32] VITALS: BMI 21.9
[2018-03-23 12:46] VITALS: TEMP 98; O2SAT 98
--- NOTE | 2018-03-23 12:57 | ED PDOC ---
Arrival/HPI - General Chief Complaint: Finger,Hand,&Wrist Time Seen by Provider: 03/23/18 12:34 Historian: Patient - History of Present Illness Narrative History of Present Illness (Text): 03/23/18 12:50 57 year old female, whose past medical history includes epilepsy, who presents to the emergency department complaining of rt fourth finger tip pain door captain. Patient states she got her finger caught in the door. Patient notes pain with movement, swelling, and bruising to the finger. Patient denies any numbness, tingling, chets pain, back pain, wrist pain, hand pain, headache, dizziness, or any other complaints. Time/Duration: Prior to Arrival Symptom Onset: Sudden Activities at Onset: Light Context: Home Past Medical History - Provider Review Nursing Documentation Reviewed: Yes - Reproductive Menopause: Yes - Cardiac Hx Cardiac Disorders: No - Pulmonary Hx Respiratory Disorders: No - Neurological Hx Neurological Disorder: Yes Hx Seizures: Yes - HEENT Hx HEENT Disorder: No - Renal Hx Renal Disorder: No - Endocrine/Metabolic Hx Endocrine Disorders: No - Hematological/Oncological Hx Blood Transfusions: No Hx Blood Transfusion Reaction: No - Integumentary Hx Dermatological Disorder: No - Musculoskeletal/Rheumatological Hx Musculoskeletal Disorders: No Hx Falls: No - Gastrointestinal Hx Gastrointestinal Disorders: No - Genitourinary/Gynecological Hx Genitourinary Disorders: No - Psychiatric Hx Psychophysiologic Disorder: No Hx Substance Use: No - Surgical History Hx Hysterectomy: () - Anesthesia Hx Anesthesia Reactions: No Hx Malignant Hyperthermia: No Family/Social History - Physician Review Nursing Documentation Reviewed: Yes Family/Social History: Unknown Family HX Smoking Status: Never Smoked Hx Alcohol Use: No Hx Substance Use: No Allergies/Home Meds Allergies/Adverse Reactions: Allergies No Known Allergies Allergy (Verified 06/11/17 00:37) Review of Systems - Physician Review All systems were reviewed & negative as marked: Yes - Review of Systems Constitutional: Normal Eyes: Normal ENT: Normal Respiratory: Normal. absent: SOB, Cough Cardiovascular: Normal. absent: Chest Pain Gastrointestinal: Normal. absent: Abdominal Pain, Diarrhea, Nausea, Vomiting Genitourinary Female: Normal. absent: Dysuria, Frequency Musculoskeletal: Normal. absent: Back Pain Skin: Normal. absent: Rash Neurological: Normal. absent: Headache, Dizziness Endocrine: Normal Hemo/Lymphatic: Normal Psychiatric: Normal Physical Exam Vital Signs Reviewed: Yes Vital Signs Temp Pulse Resp BP Pulse Ox 03/23/18 12:28 98 F 72 16 115/70 98 Temperature: Afebrile Blood Pressure: Normal Pulse: Regular Respiratory Rate: Normal Appearance: Positive for: Well-Appearing, Non-Toxic, Comfortable Pain Distress: None Mental Status: Positive for: Alert and Oriented X 3 - Systems Exam Head: Present: Atraumatic, Normocephalic Pupils: Present: PERRL Extroacular Muscles: Present: EOMI Conjunctiva: Present: Normal Mouth: Present: Moist Mucous Membranes Neck: Present: Normal Range of Motion Respiratory/Chest: Present: Clear to Auscultation, Good Air Exchange. No: Respiratory Distress, Accessory Muscle Use Cardiovascular: Present: Regular Rate and Rhythm, Normal S1, S2. No: Murmurs Abdomen: No: Tenderness, Distention, Peritoneal Signs Back: Present: Normal Inspection Upper Extremity: Present: Tenderness (distal PIP; finger tip tenderness; ecchymosis), Swelling, Neurovascularly Intact, Capillary Refill < 2s. No: Cyanosis, Edema Lower Extremity: Present: Normal Inspection. No: Edema Neurological: Present: GCS=15, CN II-XII Intact, Speech Normal Skin: Present: Warm, Dry, Normal Color. No: Rashes Psychiatric: Present: Alert, Oriented x 3, Normal Insight, Normal Concentration Medical Decision Making ED Course and Treatment: 03/23/18 13:00 Impression: 57 year old female presents to the Emergency department complaining of rt fourth finger tip pain, bruising, and swelling door captain. Plan: -- Ibuprofen -- Xray rt hand fourth digit -- Cold pack -- Reassess and disposition Progress Notes: 03/23/18 14:03 Splint performed by EMT. Pt neurovascularly intact. Pt will follow up with PMD and orthopedic/hand doctor. Xray reviewed, shows negative results for fracture. - Scribe Statement The provider has reviewed the documentation as recorded by the Scribe Bailey Moyer All medical record entries made by the Scribe were at my direction and personall y dictated by me. I have reviewed the chart and agree that the record accurately reflects my personal performance of the history, physical exam, medical decision making, and the department course for this patient. I have also personally directed, reviewed, and agree with the discharge instructions and disposition. Disposition/Present on Arrival - Present on Arrival Any Indicators Present on Arrival: No History of DVT/PE: No History of Uncontrolled Diabetes: No Urinary Catheter: No History of Decub. Ulcer: No History Surgical Site Infection Following: None - Disposition Have Diagnosis and Disposition been Completed?: Yes Diagnosis: Finger contusion Disposition: HOME/ ROUTINE Disposition Time: 14:03 Patient Plan: Discharge Condition: IMPROVED Discharge Instructions (ExitCare): Common Finger Injuries (DC) Additional Instructions: PRIYA TORRESYEОльга HANNON, thank you for letting us take care of you today. Your provider was Patrice Mitchell DO and you were treated for Finger Contusion. The emergency medical care you received today was directed at your acute symptoms. If you were prescribed any medication, please fill it and take as directed. It may take several days for your symptoms to resolve. Return to the Emergency Department if your symptoms worsen, do not improve, or if you have any other problems. Please contact your doctor or call one of the physicians/clinics you have been referred to that are listed on the Patient Visit Information form that is included in your discharge packet. Bring any paperwork you were given at discharge with you along with any medications you are taking to your follow up visit. Our treatment cannot replace ongoing medical care by a primary care provider outside of the emergency department. Thank you for allowing the [facility] team to be part of your care today. If you had an X-Ray or CT scan: A Radiologist will review the ED reading if any change in treatment is needed we will contact you. If you had a blood, urine, or wound culture: It will take several days for the results, if any change in treatment is needed we will contact you. If you had an STI test: It will take 48 hours for the results. Please call after 1 week if you have not heard back. Prescriptions: Ibuprofen [Motrin] 600 mg PO Q6 PRN #30 tab PRN Reason: Pain, Moderate (4-7) Referrals: [facility] [place] [Outside] - Follow up with primary Floyd Du III, MD [Medical Doctor] - Follow up with primary PCP,NO [Primary Care Provider] - Follow up with primary Rita Lujan MD [Medical Doctor] - Follow up with primary Forms: [employer] ([place]), WORK NOTE
--- NOTE | 2018-03-23 14:07 | RAD ---
PROCEDURE: Right Hand and 4th digit radiographs. HISTORY: injury r/o fx COMPARISON: None. FINDINGS: BONES: Normal. No fracture. JOINTS: Normal. No osteoarthritic changes. SOFT TISSUES: Normal. OTHER FINDINGS: None. IMPRESSION: Negative study
[2018-03-23 14:48] VITALS: BP 120/73; PULSE 71; RESP 18
== END 2018-03-23 14:46 | disposition home or self-care (01) ==
LOC: ED 12:27
DX: S60.041A Contusion of right ring finger without damage to nail, initial encounter (principal); W23.0XXA Caught, crushed, jammed, or pinched between moving objects, initial encounter; Y92.9 Unspecified place or not applicable

== ENCOUNTER 2018-06-12 10:38 | Emergency (ER) | payer OTHER ==
[2018-06-12 11:03] VITALS: RESP 18; TEMP 98.3; BMI 21.0
--- NOTE | 2018-06-12 12:19 | ED PDOC ---
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 Patient states the ringing is constant and has been worsened for the past 1.2 months. Patient states over the past week she's developed intermittent dizziness and a stronger ringing sensation in the ear. She denies headaches or blurred vision. No chest pain or shortness of breath no abdominal pain. Patient states she's been having intermittent dizziness with last just for a few moments and then resolves. She denies any dizziness at present time. Patient denies a clogged sensation in the ear and states she can hear normally. 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 No other complaints. Past Medical History - Provider Review Nursing Documentation Reviewed: Yes - Travel History Have you recently traveled outside [place] w/in the past 3 mons?: No - Cardiac Hx Cardiac Disorders: No - Pulmonary Hx Respiratory Disorders: No - Neurological Hx Neurological Disorder: Yes Hx Seizures: Yes - HEENT Hx HEENT Disorder: No - Renal Hx Renal Disorder: No - Endocrine/Metabolic Hx Endocrine Disorders: No - Hematological/Oncological Hx Blood Transfusions: No Hx Blood Transfusion Reaction: No - Integumentary Hx Dermatological Disorder: No - Musculoskeletal/Rheumatological Hx Musculoskeletal Disorders: No Hx Falls: No - Gastrointestinal Hx Gastrointestinal Disorders: No - Genitourinary/Gynecological Hx Genitourinary Disorders: No - Psychiatric Hx Psychophysiologic Disorder: No Hx Substance Use: No - Surgical History Hx Hysterectomy: () - Anesthesia Hx Anesthesia: Yes Hx Anesthesia Reactions: No Hx Malignant Hyperthermia: No Family/Social History - Physician Review Nursing Documentation Reviewed: Yes Family/Social History: Unknown Family HX Smoking Status: Never Smoked Hx Alcohol Use: No Hx Substance Use: No Allergies/Home Meds Allergies/Adverse Reactions: Allergies No Known Allergies Allergy (Verified 06/11/17 00:37) Review of Systems - Review of Systems Constitutional: absent: Fatigue, Fevers Eyes: absent: Vision Changes, Photophobia, Eye Pain ENT: Tinnitus. absent: Sinus Congestion Respiratory: absent: SOB, Cough Cardiovascular: absent: Chest Pain, Palpitations Gastrointestinal: absent: Abdominal Pain, Nausea, Vomiting Skin: absent: Rash, Pruritis Neurological: Dizziness (intermittent). absent: Headache Physical Exam Vital Signs Reviewed: Yes Vital Signs Temp Pulse Resp BP Pulse Ox 06/12/18 11:03 98.3 F 65 18 131/76 95 Temperature: Afebrile Blood Pressure: Normal Pulse: Regular Respiratory Rate: Normal Appearance: Positive for: Well-Appearing, Non-Toxic, Comfortable Pain Distress: None Mental Status: Positive for: Alert and Oriented X 3 - Systems Exam Head: Present: Atraumatic Pupils: Present: PERRL Extroacular Muscles: Present: EOMI Conjunctiva: Present: Normal Ears: Present: Other (right TM: TM obstructed by cerumen; no canal edema or erythema; no mastoid tenderness. left TM; wnl) Mouth: Present: Moist Mucous Membranes Pharnyx: Present: Normal Nose (External): Present: Atraumatic Nose (Internal): Present: Normal Inspection Neck: Present: Normal Range of Motion Respiratory/Chest: Present: Clear to Auscultation, Good Air Exchange. No: Respiratory Distress, Accessory Muscle Use Cardiovascular: Present: Regular Rate and Rhythm, Normal S1, S2. No: Murmurs Upper Extremity: Present: Normal ROM Lower Extremity: Present: Normal ROM Neurological: Present: GCS=15, Speech Normal Skin: Present: Warm, Dry, Normal Color. No: Rashes Psychiatric: Present: Alert, Oriented x 3 Medical Decision Making ED Course and Treatment: 06/12/18 13:14 57-year-old female with ringing in the right ear 6 months worsening over the past 1.5 months and now with intermittent dizziness 1 week. no cp or sob. Head CT; FINDINGS: HEMORRHAGE: No intracranial hemorrhage. BRAIN: Normal white-white matter differentiation and density are appreciated throughout the cerebrum and cerebellum with the brainstem appearing unremarkable as well. There is no mass effect. There is no suspicious extra-axial fluid collection and the midline brain anatomy appears diffusely unremarkable. VENTRICLES: Unremarkable. No hydrocephalus. CALVARIUM: Unremarkable. PARANASAL SINUSES: Unremarkable as visualized. No significant inflammatory changes. MASTOID AIR CELLS: Unremarkable as visualized. No inflammatory changes. OTHER FINDINGS: None. IMPRESSION: Stable unremarkable unenhanced CT of the Head. 06/12/18 13:39 Procedure note: Right ear: Using an 18-gauge Angiocath and a 20 mL syringe sterile water ear lavage was performed. Unable to remove cerumen impaction. Per patient hearing remains intact. There is no dizziness. No bleeding. No erythema. All results were discussed in depth with the patient using bridge teacher injection molding machine operator number:[id number] . pt was advised to f/u with ENT specialist within the next 2 days. Patient verbalizes understanding of discharge instructions and need for immediate followup. all aspects of this case were discussed the attending of record. impression; cerumen impaction, tinnitus follow up with the ENT specialist within the next 2 days follow up with the primary care physician within the next 2 days. return immediately if symptoms worsen, persist or if new symptoms develop - RAD Interpretation Radiology Orders: 06/12/18 12:07 HEAD W/O CONTRAST [CT] Stat Disposition/Present on Arrival - Present on Arrival Any Indicators Present on Arrival: No History of DVT/PE: No History of Uncontrolled Diabetes: No Urinary Catheter: No History of Decub. Ulcer: No History Surgical Site Infection Following: None - Disposition Have Diagnosis and Disposition been Completed?: Yes Diagnosis: Tinnitus, Cerumen impaction Disposition: HOME/ ROUTINE Disposition Time: 13:30 Patient Plan: Discharge Condition: GOOD Discharge Instructions (ExitCare): Tinnitus (Ringing in the Ears), Ear Wax Impaction Print Language: PANAMANIAN Additional Instructions: Follow up with the ENT specialist within the next 2 days follow up with the primary care physician within the next 2 days. return immediately if symptoms worsen, persist or if new symptoms develop Referrals: Floyd Lui DO [Doctor Osteopathy] - Follow up with primary Rita Lujan MD [Medical Doctor] - Follow up with primary [facility] [Outside] - Follow up with primary Forms: [employer] ([place]), WORK NOTE
[2018-06-12 13:23] VITALS: BP 128/69; PULSE 74; O2SAT 96
--- NOTE | 2018-06-12 13:34 | CT ---
Date of service: 06/12/2018 PROCEDURE: CT HEAD WITHOUT CONTRAST. HISTORY: dizziness, rining in right ear COMPARISON: Head CT without contrast 06/11/2017. TECHNIQUE: Axial computed tomography images were obtained through the head/brain without intravenous contrast. Radiation dose: Total exam DLP = 732.14 mGy-cm. This CT exam was performed using one or more of the following dose reduction techniques: Automated exposure control, adjustment of the mA and/or kV according to patient size, and/or use of iterative reconstruction technique. FINDINGS: HEMORRHAGE: No intracranial hemorrhage. BRAIN: Normal white-white matter differentiation and density are appreciated throughout the cerebrum and cerebellum with the brainstem appearing unremarkable as well. There is no mass effect. There is no suspicious extra-axial fluid collection and the midline brain anatomy appears diffusely unremarkable. VENTRICLES: Unremarkable. No hydrocephalus. CALVARIUM: Unremarkable. PARANASAL SINUSES: Unremarkable as visualized. No significant inflammatory changes. MASTOID AIR CELLS: Unremarkable as visualized. No inflammatory changes. OTHER FINDINGS: None. IMPRESSION: Stable unremarkable unenhanced CT of the Head.
== END 2018-06-12 14:07 | disposition home or self-care (01) ==
LOC: ED 10:38
DX: H61.21 Impacted cerumen, right ear (principal); H93.11 Tinnitus, right ear